=== PATIENT | female | born 1935 | race Caucasian/White ===

== ENCOUNTER 2016-11-22 11:12 | Emergency (ER) | payer MEDICARE, BC ==
[2016-07-13 10:36] VITALS: BMI 22.7
[~2016-11-22 11:12] MED LIST: ASCORBIC ACID500 MG PO; ASPIRIN EC81 M1 PO; ATIVAN0.5 MG PO; ATIVAN1 MG PO; BIOTIN5 MG PO; CALTRATE 600 M600 M1 PO; CARAFATE1 G PO; CARDIZEM30 MG PO; CORDARONE200 MG PO; ELIQUIS5 MG PO; FLUTICASONE PRO16 GM NASAL; HEMOCYTE PLUS C1 CAP PO; HYDROCHLOROTH12.5 M1 PO; K-DUR20 MEQ PO; MUCINEX600 MG PO; MULTIPLE VITAMI1 TA1 PO; PROTONIX20 MG PO; PROTONIX40 MG PO; SPIRIVA18 MCG INH; SYNTHROID25 MCG PO; TESSALON PERLE100 MG PO; ULTRACET TABLET1 TAB PO; VENTOLIN HFA18 GM INH; VITAMIN D31000 UNIT PO
[2016-11-22 12:04] LABS: BASOPHILS 0.1 % (0.0-2.0); EOSINOPHILS 0.2 % (0-7); HEMATOCRIT 34.3 % (36.0-48.0); IMMATURE GRANULOCYTES 0.3 % (0-5); LYMPHOCYTES 13.4 % (15-50); MCH 28.6 pg (26.0-34.0); MCHC 32.1 g/dL (31.0-37.0); MCV 89.3 fL (80.0-100.0); MEAN PLATELET VOLUME 8.6 fL (7.4-10.4); MONOCYTES 8.5 % (2-11); NEUTROPHILS 77.5 % (40-80); PLATELET COUNT 390 10x3/uL (130-400); RBC 3.84 10x6/uL (4.00-5.40); RDW 14.9 % (11.5-14.5)
[2016-11-22 12:20] LABS: ALBUMIN 2.5 g/dL (3.4-5.0); ALKALINE PHOSPHATASE 134 U/L (46-116); ALT (SGPT) 27 U/L (10-68); BILIRUBIN - TOTAL 0.74 mg/dL (0.2-1.3); CALC OSMOLALITY 273 mosm/kg (275-300); CARBON DIOXIDE 26.1 mmol/L (21.0-32.0); CHLORIDE - SERUM 101 mmol/L (98-107); CREATININE - SERUM 0.9 mg/dL (0.6-1.3); GLUCOSE 118 mg/dL (74-106); POTASSIUM - SERUM 3.5 mmol/L (3.5-5.1); PROTEIN - SERUM 7.3 g/dL (6.4-8.2); SODIUM 137 mmol/L (136-145); UREA NITROGEN 11 mg/dL (7-18); eGFR NON AFRICAN AMERICAN 63 mL/min (90-120)
[2016-11-22 12:26] LABS: APPEARANCE HAZY (CLEAR); BILIRUBIN NEGATIVE (NEGATIVE); COLOR YELLOW (YELLOW); GLUCOSE NEGATIVE (NEGATIVE); KETONE NEGATIVE (NEGATIVE); LEUKOCYTE ESTERASE NEGATIVE (NEGATIVE); NITRITE NEGATIVE (NEGATIVE); PROTEIN NEGATIVE (NEGATIVE); SPECIFIC GRAVITY 1.015 (1.005-1.020); UROBILINOGEN NORMAL (NORMAL)
[2016-11-22 12:28] LABS: BACTERIA FEW /hpf (NONE SEEN); EPITHELIAL CELLS OCC /hpf (0-5); RED CELLS - URINE RARE /hpf (0-5); WHITE CELLS - URINE RARE /hpf (0-5)
[2016-11-22 12:33] LABS: CREATINE KINASE 10 UL (21-215); PRO BNP 5737 pg/mL (0-450); THYROID STIMULATING HORMONE 1.48 uIU/mL (0.36-3.74)
[2016-11-22 12:35] LABS: TROPONIN-I < 0.017 ng/mL (0.000-0.060)
== END 2016-11-22 13:36 | disposition home or self-care (01) ==
LOC: D.ER 11:12
PROVIDERS: Emergency Medicine
DX: I48.91 Unspecified atrial fibrillation (principal); R53.1 Weakness; Z85.118 Personal history of other malignant neoplasm of bronchus and lung; Z72.0 Tobacco use

== ENCOUNTER 2016-11-27 01:32 | Inpatient (IN) | payer MEDICARE, BC ==
[2016-11-27] VITALS (7 sets, daily range): BP systolic 80–141; BP diastolic 50–71; BMI 19.4
[~2016-11-27] VITALS: Ht 167.6 cm; Wt 54.4 kg
--- NOTE | ~2016-11-27 | EC ---
PATIENT:RIC ALATORRE DATE OF SERVICE: 11/27/16 SEX: F MEDICAL RECORD: [id number] DATE OF : [birth year] LOCATION:[facility] [address] AGE OF PATIENT: 81 ADMISSION DATE: 11/27/16 REFERRING PHYSICIAN: INTERPRETING PHYSICIAN: ALANNAH HOWARD M.D. ECHOCARDIOGRAM REPORT ECHO CHARGES 4 ECHO COMPLETE CLINICAL DIAGNOSIS: SOB ECHOCARDIOGRAPHIC MEASUREMENTS (adult normal given) AC root (d.<3.7cm) 2.9 LV Septum d (<1.2 cm> 1.0 Valve Excursion 1.5 LV Septum (systole) 1.3 Left Atria (s.<4.0cm> 3.6 LVPW d(<1.2cm) 1.0 RV (d.<2.3cm) 2.4 LVPW (sytole) 1.5 LV diastole(<5.6CM) 5.1 MV E-F(>70mm/sec) LV systole 4.1 LVOT Diameter 1.6 MV exc.(>10mm) Est.ejection fraction (50-75%) Pericardial Effusion N DOPPLER: LVIT A E 137 LA RVSP 38.1 LVOT 57.0 AOP1/2T Asc. Ao 100 RVOT 48.0 RA PA 50.0 AV Gradient Peak 4.0 AV Mean 2.2 AV Area 1.2 MV Gradient Peak 6.9 MV Mean 2.0 MV Area COMMENTS: Global Marketing Coordinator: Ayush MERINOOE Kidney Puller:Paul Howard TAPE# PACS DATE OF SERVICE: 11/28/2016 INDICATION: Dyspnea, atrial fibrillation. REFERRING PHYSICIAN: Lisa Blevins MD DESCRIPTION: Left ventricle is normal in size. There is global hypokinesis noted. His ejection fraction is in the order of 25% to 30%. Mitral valve leaflets are slightly thickened. There is moderate to severe regurgitation noted. Left atrium is normal in size. The aortic valve is trileaflet. I do ECHOCARDIOGRAM REPORT [id number] RIC ALATORRE not see any stenosis or regurgitation. Right ventricle is normal size and function. Tricuspid valve is structurally normal. There is mild regurgitation noted. Right atrium is normal size. There is no pericardial effusion seen. IMPRESSION: 1. Severe left ventricular dysfunction with ejection fraction of 25% to 30%. 2. Moderate to severe mitral regurgitation. 3. Moderate tricuspid regurgitation. TRANSINT:[id number] Voice Confirmation ID: [id number] DOCUMENT ID: [id number] ALANNAH HOWARD M.D. CC: [id number] DICTATION DATE: 11/29/16706 RECORDS AND TAPE RECORDINGS ENGINEER: 11/29/16 0851 ADM IN [facility] [address] [id number]
[~2016-11-27 01:32] MED LIST changes: -ATIVAN0.5 MG PO; +ATIVAN2 MG PO
[2016-11-27 02:37] LABS: BASOPHILS 0.2 % (0.0-2.0); EOSINOPHILS 3.1 % (0-7); HEMATOCRIT 34.6 % (36.0-48.0); HEMOGLOBIN 10.7 g/dL (12-16); IMMATURE GRANULOCYTES 0.5 % (0-5); MCH 28.7 pg (26.0-34.0); MCHC 30.9 g/dL (31.0-37.0); MCV 92.8 fL (80.0-100.0); MEAN PLATELET VOLUME 9.5 fL (7.4-10.4); MONOCYTES 5.7 % (2-11); NEUTROPHILS 59.5 % (40-80); RBC 3.73 10x6/uL (4.00-5.40); RDW 15.1 % (11.5-14.5); WBC 17.4 10x3/uL (4.8-10.8)
[2016-11-27 02:39] LABS: APPEARANCE HAZY (CLEAR); BILIRUBIN NEGATIVE (NEGATIVE); COLOR YELLOW (YELLOW); GLUCOSE NEGATIVE (NEGATIVE); KETONE NEGATIVE (NEGATIVE); LEUKOCYTE ESTERASE 1+ (NEGATIVE); NITRITE POSITIVE (NEGATIVE); PROTEIN TRACE mg/dL (NEGATIVE); SPECIFIC GRAVITY 1.015 (1.005-1.020); UROBILINOGEN NORMAL (NORMAL)
[2016-11-27 02:40] LABS: RED CELLS - URINE 0-5 /hpf (0-5)
[2016-11-27 02:41] LABS: BACTERIA MANY /hpf (NONE SEEN); EPITHELIAL CELLS RARE /hpf (0-5)
[2016-11-27 02:41] LABS: PLATELET COUNT 518 10x3/uL (130-400)
[2016-11-27 02:46] LABS: ALBUMIN 2.3 g/dL (3.4-5.0); ANION GAP 13.9 mmol/L (8-16); BILIRUBIN - TOTAL 0.3 mg/dL (0.2-1.3); CALCIUM 8.8 mg/dL (8.5-10.1); CREATININE - SERUM 1.1 mg/dL (0.6-1.3); POTASSIUM - SERUM 4.9 mmol/L (3.5-5.1)
[2016-11-27 03:09] LABS: TROPONIN-I 0.071 ng/mL (0.000-0.060)
--- NOTE | 2016-11-27 07:40 | NUR ---
PATIENT RECEIVED ALERT IN BED. NO SIGNS OF DISTRESS NOTED. BIPAP IN PLACE. SIDE RAILS UP X2. BED IN LOW POSITION. CALL LIGHT IN REACH.
[2016-11-27] MEDS ORDERED: BETAPACE 80 MG80 MG PO (07:47)
--- NOTE | 2016-11-27 10:00 | NUR ---
PATIENT IN MID [place] POSITION RESTING WITH EYES CLOSED. RESPIRATIONS EVEN AND UNLABORED. AT BEDSIDE. SIDE RAILS UP X2. BED IN LOW POSITION. CALL LIGHT IN REACH.
--- NOTE | 2016-11-27 11:10 | NUR ---
ALERT IN BED. RESPIRATIONS EVEN AND UNLABORED. SCHEDULED MEDICATION ADMINISTERED. WELL TOLERATED. SIDE RAILS UP X2. BED IN LOW POSITION. CALL LIGHT IN REACH.
--- NOTE | 2016-11-27 14:39 | NUR ---
PATIENT IN HIGH [place]ZQUEZ POSITION RESTING WITH EYES CLOSED. RESPIRATIONS EVEN AND UNLABORED. AT BEDSIDE. SIDE RAILS UP X2. BED IN LOW POSITION. CALL LIGHT IN REACH.
--- NOTE | 2016-11-27 16:12 | NUR ---
PATIENT ASSISTED UP TO RESTROOM THEN BACK TO BED. SCHEDULED MEDICATION ADMINISTERED. WELL TOLERATED. SIDE RAILS UP X2. BED IN LOW POSITION. CALL LIGHT IN REACH.
--- NOTE | 2016-11-27 18:02 | NUR ---
PERCOCET PER PRN ORDER. DENIES FURTHER NEEDS. SIDE RAILS UP X2. BED IN LOW POSITION. CALL LIGHT IN REACH.
--- NOTE | 2016-11-27 20:00 | NUR ---
ASSESSMENT PER FLOWSHEET. IV PATENT RT WRIST OF NS AT 50CC'S/HR SITE CLEAR. O2 ON 3L/M PER NC. TELM. SHOWING UCAF WITH HR 103. HOB UP 30 DEGREES SR UP X2 CALL LIGHT WITHIN REACH. DENIES NEEDS.
--- NOTE | 2016-11-27 21:15 | NUR ---
MEDS GIVEN PER MAR.
--- NOTE | 2016-11-27 21:30 | NUR ---
C/O CONSTIPATION. PRUNE JUICE GIVEN PO FOR CONSTIPATION.
--- NOTE | 2016-11-28 | NUR ---
EYES CLOSED RESPIRATIONS WITH EASE AND UNLABORED.
--- NOTE | 2016-11-28 00:52 | NUR ---
SOLUMEDROL 40MG IVP GIVEN ORDERED PULLED BY BINH ZENDEJAS AERONAUTICS COMMISSION DIRECTOR.
--- NOTE | 2016-11-28 01:42 | NUR ---
RESTING QUIETLY NO CHANGES IN ASSESSMENT.
[2016-11-28 04:00] VITALS: BP 110/78
--- NOTE | 2016-11-28 04:20 | NUR ---
EYES CLOSED RESPIRATIONS WITH EASE AND UNLABORED. O2 SAT RUNNING 96-97% ON 2 L/M PER NC.
[2016-11-28 06:08] LABS: BASOPHILS 0 % (0.0-2.0); EOSINOPHILS 0.1 % (0-7); HEMATOCRIT 30.8 % (36.0-48.0); HEMOGLOBIN 9.7 g/dL (12-16); IMMATURE GRANULOCYTES 0.3 % (0-5); LYMPHOCYTES 7.1 % (15-50); MCH 28.7 pg (26.0-34.0); MCHC 31.5 g/dL (31.0-37.0); MCV 91.1 fL (80.0-100.0); MEAN PLATELET VOLUME 8.9 fL (7.4-10.4); MONOCYTES 2.5 % (2-11); PLATELET COUNT 446 10x3/uL (130-400); RBC 3.38 10x6/uL (4.00-5.40); RDW 15.2 % (11.5-14.5); WBC 13.8 10x3/uL (4.8-10.8)
[2016-11-28 06:29] LABS: ANION GAP 12.3 mmol/L (8-16); CALCIUM 8.4 mg/dL (8.5-10.1); CARBON DIOXIDE 27.1 mmol/L (21.0-32.0); CREATININE - SERUM 0.9 mg/dL (0.6-1.3); POTASSIUM - SERUM 4.4 mmol/L (3.5-5.1)
--- NOTE | 2016-11-28 07:30 | NUR ---
RECIEVED PT DURING WALKING ROUNDS. PT RESTING COMFORTABLY IN BED WITH NO COMPLAINT OF PAIN. SPOKE WITH PT ABOUT RECIEVING SOMETHING FOR A BM, INFORMED PT THAT WE COULD SPEAK TO THE DR. ASSESSMENT DONE PER FLOWSHEET. BED IN LOW POSITION AND CALL LIGHT WITHIN REACH. WILL CONTINUE TO MONITOR.
[2016-11-28 08:34] VITALS: BP 122/76
--- NOTE | 2016-11-28 10:16 | NUR ---
RECEIVED ORDER AT THIS TIME FOR MIRALAX BID. WILL CONTINUE TO MONITOR.
[2016-11-28 11:25] VITALS: BP 126/61
--- NOTE | 2016-11-28 13:16 | NUR ---
Patient Name: RIC ALATORRE Admission Status: ER Accout number: [id number] Admission Date: 11-27-2016 : 1934 Admission Diagnosis: Attending: PALOMO Current LOS: 1 Anticipated DC Date: 12-02-2016 Planned Disposition: Home Primary Insurance: MEDICARE A & B Discharge Planning Comments: CM MET WITH PATIENT AND SPOUSE (BUSHRA) REGARDING D/C NEEDS AND PLANS. PATIENT STATED HER SPOUSE WILL DRIVE HER HOME AT DISCHARGE. PATIENTS SPOUSE STATED THERE ARE NO STEPS OR STAIRS AT THERE HOME. PATIENT IS INDEPENDENT WITH HER CARE AND HAS OXYGEN (USES AT ) AND PORTABLE O2 AT HOME. PATIENTS PCP IS DR. MARADIAGA IN THE [facility] AND USES [facility] AT THE [facility]. PATIENT DID NOT WANT HOME HEALTH AT THIS TIME. SHE STATED IT IS NOT TIME FOR HOME HEALTH. PATIENT ASKED WHO COULD SET UP HOME HEALTH OR HOSPICE WHEN IT CAME TIME. CM STATED HER PCP COULD HELP HER WITH THAT IF SHE WAS NOT IN THE HOSPITAL. CM WILL CONTINUE TO FOLLOW PATIENT WITH D/C NEEDS AND PLANS. PCP DR. ASHWINI MIRELES AT [facility] [phone] BUSHRA (SPOUSE) [phone] Aircraft Part Assembler: Razianaomie Thomasmel Is the patient Alert and Oriented? Yes 0 * How many steps to enter\exit or inside your home? 0 0 * PCP DR. MARADIAGA ([facility]) 0 * Pharmacy [facility] [address] ([facility]) 0 * Preadmission Environment Home with Family 0 * ADLs Independent 0 * Equipment Oxygen 0 * Other Equipment PORTABLE 02 0 * List name and contact numbers for known caregivers / representatives who currently or will assist patient after discharge: BUSHRA (SPOUSE) [phone] 0 * Community resources currently utilized None 0 * Additional services required to return to the preadmission environment? Yes 0 * Can the patient safely return to the preadmission environment? Yes 0 * Has this patient been hospitalized within the prior 30 days at any hospital? No 0 Grand Total: 0
[2016-11-28 14:00] VITALS: Ht 167.6 cm; Wt 54.4 kg
[2016-11-28 15:40] VITALS: BP 153/82
--- NOTE | 2016-11-28 17:34 | NUR ---
PT REFUSED CT AT THIS TIME DUE TO NEEDING TO HAVE A BM. SPOKE WITH DEE IN CT AND HE STATED HE WOULD PUT PT ON SCHEDULE FOR THE AM SINCE SCAN IS BEING REFUSED FOR THIS AFTERNOON. WILL PLACE PT NPO AFTER MIDNIGHT.
--- NOTE | 2016-11-28 18:27 | NUR ---
PATIENT IS AWAKE, ALERT AND ORIENTED X'S 4. RESPIRATIONS ARE EVEN AND UNLABORED ON 2L/MIN OXYGEN VIA NASAL CANNULA. AT BEDSIDE. BOTH DENY NEEDS. BED IN LOWEST POSITION, CALL LIGHT IN REACH. BED RAILS UP X'S 2.
[2016-11-28 19:00] VITALS: BP 181/101
--- NOTE | 2016-11-28 20:00 | NUR ---
ASSESSMENT PER FLOWSHEET. SPOUSE AT BEDSIDE. PATIENT VERY ANXIOUS. IV PATENT RT WRIST OF NS AT 50CC'S/HR DR. DICK AT BEDSIDE. O2 ON 3L/M PER NC.
--- NOTE | 2016-11-28 20:30 | NUR ---
VS SHOWING B/P AT 181/101. NOTIFIED SHANNAN VANEGAS OF PATIENT'S ELEVATED B/P. ORDERS RECEIVED.
--- NOTE | 2016-11-28 21:44 | NUR ---
APRESOLINE 10MG IVP GIVEN FOR ELEVATED B/P.
--- NOTE | 2016-11-28 22:40 | NUR ---
C/O NAUSEA AND VOMITING GREEN COLORED BILE. ORDERS REC'D FOR NAUSEA MED. ZOFRAN 4MG IVP GIVEN FOR NAUSEA AND VOMITING.
[2016-11-29] VITALS: BP 152/77
--- NOTE | 2016-11-29 | NUR ---
UP WITH HELP TO BR VOIDS WELL ASSISTED BACK TO BED REPOSITIONED IN BED. SR UP X2 CALL LIGHT WITHIN REACH SPOUSE AT BEDSIDE. PATIENT NOW NPO FOR PROCEDURE IN AM.
--- NOTE | 2016-11-29 00:40 | NUR ---
B/P=152/77
--- NOTE | 2016-11-29 04:02 | NUR ---
C/O NAUSEA NO EMESIS SEEN ZOFRAN 4MG IVP GIVEN FOR NAUSEA. PT STATES SHE IS WORRIED ABOUT UP COMING TEST.
[2016-11-29 06:03] LABS: BASOPHILS 0 % (0.0-2.0); EOSINOPHILS 0 % (0-7); HEMATOCRIT 31.4 % (36.0-48.0); HEMOGLOBIN 9.8 g/dL (12-16); IMMATURE GRANULOCYTES 0.4 % (0-5); LYMPHOCYTES 6.6 % (15-50); MCH 28.5 pg (26.0-34.0); MCHC 31.2 g/dL (31.0-37.0); MCV 91.3 fL (80.0-100.0); MEAN PLATELET VOLUME 8.8 fL (7.4-10.4); MONOCYTES 4.7 % (2-11); NEUTROPHILS 88.3 % (40-80); PLATELET COUNT 495 10x3/uL (130-400); RBC 3.44 10x6/uL (4.00-5.40); RDW 15.3 % (11.5-14.5); WBC 15.7 10x3/uL (4.8-10.8)
[2016-11-29 06:33] LABS: CALC OSMOLALITY 284 mosm/kg (275-300); CALCIUM 8.3 mg/dL (8.5-10.1); CARBON DIOXIDE 28.2 mmol/L (21.0-32.0); CHLORIDE - SERUM 105 mmol/L (98-107); CREATININE - SERUM 0.7 mg/dL (0.6-1.3); GLUCOSE 135 mg/dL (74-106); POTASSIUM - SERUM 4.5 mmol/L (3.5-5.1); SODIUM 142 mmol/L (136-145); eGFR NON AFRICAN AMERICAN 85 mL/min (90-120)
[2016-11-29 06:34] LABS: UREA NITROGEN 12 mg/dL (7-18)
--- NOTE | 2016-11-29 07:15 | NUR ---
REPORT RECEIVED FROM AUTOMATIC PRINT DEVELOPER NURSE. CALL LIGHT IN REACH.
[2016-11-29 08:10] VITALS: BP 176/94
--- NOTE | 2016-11-29 08:51 | NUR ---
TO CT VIA BED.
--- NOTE | 2016-11-29 09:36 | NUR ---
BACK IN ROOM. ASSESSMENT COMPLETED. PERCOCET PO WITH AM MEDS THAT PATIENT WANTED. SHE REFUSED SOME OF HER MEDS. AT BEDSIDE. CALL LIGHT IN REACH. WILL CONTINUE WITH PLAN OF CARE.
--- NOTE | 2016-11-29 10:55 | NUR ---
STATES PAIN IS NOW AT A 0.
[2016-11-29 11:32] VITALS: BP 168/95
--- NOTE | 2016-11-29 12:29 | NUR ---
MARK LOVE. SON IN ROOM. CALL LIGHT IN REACH.
--- NOTE | 2016-11-29 14:37 | NUR ---
ELVIA IVPB AND NORCO PO. SON AT BEDSIDE. CALL LIGHT IN REACH.
--- NOTE | 2016-11-29 14:51 | NUR ---
C/O NAUSEA. ZOFRAN 4 MGS IVP PER NAUSEA.
[2016-11-29 16:44] VITALS: BP 163/93
--- NOTE | 2016-11-29 16:51 | NUR ---
C/O NAUSEA. ZOFRAN 4 MGS IVP PER NAUSEA.
--- NOTE | 2016-11-29 18:20 | NUR ---
PROTONIX, CARAFATE, AND NORCO PO. NO CHANGES IN INITIAL ASSESSMENT. WANTS SOMETHING ELSE FOR NAUSEA. NAY PAGED AGAIN. AT BEDSIDE. CALL LIGHT IN REACH. WILL CONTINUE WITH PLAN OF CARE.
[2016-11-29 19:00] VITALS: BP 146/93
--- NOTE | 2016-11-29 20:00 | NUR ---
ASSESSMENT PER FLOWSHEET. IV PATENT RT WRIST OF NS AT 50CC'S/HR. HOB UP 35 DEGREES. SPOUSE AT BEDSIDE. DENIES NEEDS. O2 ON 2L/M PER NC. DENIES ANY PAIN OR NAUSEA.
--- NOTE | 2016-11-29 21:15 | NUR ---
MEDS GIVEN PER MAR. REFUSES CARAFATE AND MIRALAX. TELM. SHOWING UNCAF WITH HR 103.
--- NOTE | 2016-11-30 | NUR ---
EYES CLOSED RESPIRATIONS WITH EASE AND UNLABORED.
--- NOTE | 2016-11-30 02:02 | NUR ---
TELM. SHOWS SR WITH HR 64. PT CONVERTED FROM UNCAF TO SR.
[2016-11-30 04:00] VITALS: BP 130/78
[2016-11-30 05:34] LABS: BASOPHILS 0 % (0.0-2.0); EOSINOPHILS 0 % (0-7); HEMATOCRIT 29.1 % (36.0-48.0); HEMOGLOBIN 9.2 g/dL (12-16); IMMATURE GRANULOCYTES 0.8 % (0-5); LYMPHOCYTES 10.2 % (15-50); MCH 28.9 pg (26.0-34.0); MCHC 31.6 g/dL (31.0-37.0); MCV 91.5 fL (80.0-100.0); MEAN PLATELET VOLUME 8.8 fL (7.4-10.4); MONOCYTES 4.6 % (2-11); NEUTROPHILS 84.4 % (40-80); PLATELET COUNT 429 10x3/uL (130-400); RBC 3.18 10x6/uL (4.00-5.40); RDW 15.1 % (11.5-14.5)
[2016-11-30 05:46] LABS: WBC 9.3 10x3/uL (4.8-10.8)
[2016-11-30 05:48] LABS: CALCIUM 8.3 mg/dL (8.5-10.1); CARBON DIOXIDE 28.3 mmol/L (21.0-32.0); CREATININE - SERUM 0.8 mg/dL (0.6-1.3); POTASSIUM - SERUM 4.3 mmol/L (3.5-5.1)
--- NOTE | 2016-11-30 08:00 | NUR ---
SLEEPING AT THIS TIME. RESPIRATIONS EVEN AND NON LABORED. AT BEDSIDE. CALL LIGHT IN REACH AND BED IN LOWEST POSITION WITH SRX2 AND WHEELS LOCKED. WILL CONTINUE WITH PLAN OF CARE.
[2016-11-30 08:24] VITALS: BP 133/73
--- NOTE | 2016-11-30 11:40 | NUR ---
SCHEDULED MEDICATIONS ADMINISTERED AT THIS TIME. IV TO RIGHT WRIST PATENT. PT RECEIVING RESPIRATORY TREATMENT AT THIS TIME. 500ML OF PALE, YELLOW URINE EMPTIED FROM [place] HAT. DENIES FURTHER NEEDS OR NAUSEA AT PRESENT TIME. CALL LIGHT IN REACH, WILL CONTINUE WITH PLAN OF CARE.
[2016-11-30 11:59] VITALS: BP 134/72
--- NOTE | 2016-11-30 13:56 | NUR ---
NUTRITION MONITORING & EVAL PT TOLERATING ADA DIET. GOOD PO INTAKE BREAKFAST. LUNCH NOT RECORDED. RD FOLLOWING
[2016-11-30 16:12] VITALS: BP 141/73
[2016-11-30 20:00] VITALS: BP 143/70
--- NOTE | 2016-11-30 20:00 | NUR ---
ASSESSMENT PER FLOWSHEET. IV SALINE LOCKED TO RT WRIST. SITE CLEAR. SPOUSE AT BEDSIDE. PT STATES POSSIBLY GOING HOME IN AM. VERY HAPPY. DENIES PAIN OR ANY DISCOMFORT.
--- NOTE | 2016-11-30 21:15 | NUR ---
MEDS GIVEN PER MAR.
[2016-12-01] VITALS: BP 153/79
--- NOTE | 2016-12-01 | NUR ---
EYES CLOSED RESPIRATIONS WITH EASE AND UNLABORED.
[2016-12-01 03:00] VITALS: BP 162/90
--- NOTE | 2016-12-01 03:00 | NUR ---
EYES CLOSED RESTING QUIETLY DENIES NEEDS.
[2016-12-01 05:37] LABS: BASOPHILS 0.1 % (0.0-2.0); EOSINOPHILS 0 % (0-7); HEMATOCRIT 31.4 % (36.0-48.0); HEMOGLOBIN 9.9 g/dL (12-16); IMMATURE GRANULOCYTES 0.9 % (0-5); LYMPHOCYTES 9.2 % (15-50); MCH 28.7 pg (26.0-34.0); MCHC 31.5 g/dL (31.0-37.0); MEAN PLATELET VOLUME 8.8 fL (7.4-10.4); MONOCYTES 5.8 % (2-11); PLATELET COUNT 501 10x3/uL (130-400); RBC 3.45 10x6/uL (4.00-5.40); RDW 15.2 % (11.5-14.5)
[2016-12-01 05:40] LABS: WBC 11.8 10x3/uL (4.8-10.8)
[2016-12-01 05:42] LABS: ANION GAP 12.9 mmol/L (8-16); CALCIUM 8.7 mg/dL (8.5-10.1); CARBON DIOXIDE 28.8 mmol/L (21.0-32.0); CREATININE - SERUM 0.9 mg/dL (0.6-1.3); POTASSIUM - SERUM 4.7 mmol/L (3.5-5.1)
--- NOTE | 2016-12-01 07:00 | NUR ---
REPORT RECEIVED FROM ASSOCIATE SALES REPRESENTATIVE NURSE. CALL LIGHT IN REACH.
--- NOTE | 2016-12-01 08:07 | NUR ---
ASSESSMENT COMPLETED. NORCO PO WITH AM MEDS ADMINISTERED EXCEPT FOR THE ONES THAT SHE HAS REFUSED. ALSO REFUSES SCDs. CALL LIGHT IN REACH. IN ROOM. WILL CONTINUE WITH PLAN OF CARE.
[2016-12-01 09:08] VITALS: BP 135/75
--- NOTE | 2016-12-01 09:57 | NUR ---
PATIENT ALERT IN MID [place] POSITION. RESPIRATIONS EVEN AND UNLABORED. AT BEDSIDE. SIDE RAILS UP X2. BED IN LOW POSITION. CALL LIGHT IN REACH.
[2016-12-01] MEDS ORDERED: ATROVENT 0.02%2.5 ML UPD (11:02)
[2016-12-01] MEDS ORDERED: PULMICORT0.5 MG/21 UPD (11:03)
[2016-12-01] MEDS ORDERED: TESSALON PERLE100 MG PO (11:03)
[2016-12-01] MEDS ORDERED: Levaquin PO (11:03)
[2016-12-01] MEDS ORDERED: XOPENEX 0.0.63 MG/3 UPD (11:03)
[2016-12-01] MEDS ORDERED: PREDNISONE20 MG PO (11:04)
[2016-12-01] MEDS ORDERED: MUCINEX DM ER1 EAC1 PO (11:04)
[2016-12-01] MEDS ORDERED: FLORAJEN3 CAPS460 MG PO (11:04)
[2016-12-01] MEDS ORDERED: OMNICEF300 MG PO (11:06)
[2016-12-01] MEDS ORDERED: METOPROLOL TART25 MG PO (11:07)
--- NOTE | 2016-12-01 11:20 | NUR ---
NO NEEDS VOICED AT THIS TIME. AT BEDSIDE. WAITING ON DISCHARGE.
--- NOTE | 2016-12-01 11:36 | NUR ---
CM REASSESSMENT NOTE: PATIENT IS DISCHARGING TODAY HOME-SPOUSE TO DRIVE HER. NEBULIZER FROM [facility] HAS BEEN ORDERED AND WILL DELIVER TO ROOM BEFORE DISCHARGE. PATIENT REFUSED HOME HEALTH STATED WOLF MCGEE AT THE [facility] COULD ORDER HER HOME HEALTH LATER ON IF NEEDED. D/C IMM SERVED
--- NOTE | 2016-12-01 12:46 | NUR ---
MARK FULLERPB. REFUSES CARAFATE. PEGGY PO. CALL LIGHT IN REACH.
[2016-12-01 12:55] VITALS: BP 92/51
--- NOTE | 2016-12-01 14:50 | NUR ---
DC INSTRUCTIONS EXPLAINED TO PATIENT AND . VERBALIZED UNDERSTANDING.
--- NOTE | 2016-12-01 15:41 | NUR ---
RANDACO PO PER C/O PAIN. CALL LIGHT IN REACH.
--- NOTE | 2016-12-01 15:56 | NUR ---
DC'D TO VEHICLE VIA WC WITH .
[2016-12-04 19:07] LABS: AEROBE ID Final report (()); RESULT 1 Klebsiella oxytoca (())
[2016-12-05 19:10] LABS: AEROBE ID Final report (()); RESULT 1 Escherichia coli (())
== END 2016-12-01 15:56 | disposition home or self-care (01) | DRG 189 ==
LOC: D.ER 01:32 → D.MS 03:05
PROVIDERS: Emergency Medicine; ADMIT Emergency Medicine
PROC: 5A09357 Assistance with Respiratory Ventilation, Less than 24 Consecutive Hours, Continuous Positive Airway Pressure (ICD-10-PCS; principal; 2016-11-27)
DX: J96.21 Acute and chronic respiratory failure with hypoxia (principal); J18.1 Lobar pneumonia, unspecified organism; I50.23 Acute on chronic systolic (congestive) heart failure; J44.0 Chronic obstructive pulmonary disease with (acute) lower respiratory infection; N39.0 Urinary tract infection, site not specified; E87.1 Hypo-osmolality and hyponatremia; J44.1 Chronic obstructive pulmonary disease with (acute) exacerbation; C78.02 Secondary malignant neoplasm of left lung; N17.9 Acute kidney failure, unspecified; I48.0 Paroxysmal atrial fibrillation; B96.89 Other specified bacterial agents as the cause of diseases classified elsewhere; D64.9 Anemia, unspecified; E03.9 Hypothyroidism, unspecified; K21.9 Gastro-esophageal reflux disease without esophagitis; Z85.118 Personal history of other malignant neoplasm of bronchus and lung; I73.00 Raynaud's syndrome without gangrene

== ENCOUNTER 2016-12-18 01:29 | Emergency (ER) | payer MEDICARE, BC ==
[2016-11-28 14:00] VITALS: BMI 19.3
[~2016-12-18 01:29] MED LIST changes: +ATROVENT 0.02%2.5 ML UPD; +BETAPACE 80 MG80 MG PO; +FLORAJEN3 CAPS460 MG PO; +Levaquin PO; +METOPROLOL TART25 MG PO; +MUCINEX DM ER1 EAC1 PO; +OMNICEF300 MG PO; +PREDNISONE20 MG PO; +PULMICORT0.5 MG/21 UPD; +XOPENEX 0.0.63 MG/3 UPD
== END 2016-12-18 03:54 | disposition home or self-care (01) ==
LOC: D.ER 01:29
DX: J15.9 Unspecified bacterial pneumonia (principal); Z85.118 Personal history of other malignant neoplasm of bronchus and lung